=== PATIENT | female | born 1935 | race Caucasian/White ===

== ENCOUNTER 2018-03-04 15:26 | Outpatient (CLI) | payer MEDICARE, OTHER | END 2018-03-04 15:28 | LOC: NEPHRO 15:26 | PROVIDERS: ATTEND Internal Medicine Nephrology | DX: N17.9 Acute kidney failure, unspecified (principal) | CPT/HCPCS: G0463 ==

== ENCOUNTER 2018-03-18 16:02 | Outpatient (CLI) | payer MEDICARE, OTHER | END 2018-03-18 16:04 | LOC: NEPHRO 16:02 | PROVIDERS: ATTEND Internal Medicine Nephrology | DX: N18.9 Chronic kidney disease, unspecified (principal); N17.9 Acute kidney failure, unspecified | CPT/HCPCS: G0463 ==

== ENCOUNTER 2018-05-20 15:20 | Outpatient (CLI) | payer MEDICARE, OTHER | END 2018-05-20 15:23 | LOC: NEPHRO 15:20 | PROVIDERS: ATTEND Internal Medicine Nephrology | DX: N18.3 Chronic kidney disease, stage 3 (moderate) (principal); I10 Essential (primary) hypertension | CPT/HCPCS: G0463 ==

== ENCOUNTER 2018-08-05 14:38 | Outpatient (CLI) | payer MEDICARE, OTHER | END 2018-08-05 14:40 | LOC: NEPHRO 14:38 | PROVIDERS: ATTEND Internal Medicine Nephrology | DX: N18.9 Chronic kidney disease, unspecified (principal); N17.9 Acute kidney failure, unspecified; I10 Essential (primary) hypertension | CPT/HCPCS: G0463 ==